=== PATIENT | female | born 2000 | race African-American/Black ===

== ENCOUNTER 2024-06-12 16:56 | Emergency (ER) | payer MEDICAID ==
[~2024-06-12] VITALS: Ht 160 cm; Wt 54.4 kg
[2024-06-12] MEDS ORDERED: KETOROLAC TROMETHAMINE 30 MG/ML SDV IV ONE (17:00)
[2024-06-12] MEDS ORDERED: SODIUM CHLORIDE 0.9% 1,000 ML IV ONE (17:00)
[2024-06-12 17:11] VITALS: BP 115/70
[2024-06-12 17:15] VITALS: BP 107/66
[2024-06-12 17:15] LABS: URINE BILIRUBIN - DIPSTICK Negative (NEGATIVE); URINE BLOOD DIPSTICK Large (NEGATIVE); URINE GLUCOSE - DIPSTICK Negative (NEGATIVE); URINE KETONE Negative (NEGATIVE); URINE LEUK ESTERASE Negative (NEGATIVE); URINE NITRITE - DIPSTICK Negative (Negative); URINE PH 5.5 (4.5-8.0); URINE PROTEIN - DIPSTICK 30 mg/dL (NEG-TRACE); URINE SPECIFIC GRAVITY 1.025; URINE UROBILINOGEN - DIPSTICK 0.2 E.U./dL (0.2)
[2024-06-12 17:16] LABS: BASO% 0.4 % (0-3); EOS% 0.4 % (0-8); HEMATOCRIT 30.2 % (37.0-47.0); HEMOGLOBIN 9.8 g/dl (12.0-16.0); IMMATURE GRANULOCYTES 0.1 % (0.0-5.0); LYMPH% 22.8 % (15-41); MEAN CELL VOLUME 84.1 fL CALC (80.0-100.0); MEAN CORPUSCULAR HGB 27.3 pG CALC (26.0-32.0); MEAN CORPUSCULAR HGB CONC 32.5 g/dL CAL (32.0-36.0); MONO% 12.4 % (2-13); NEUT# 4.69 thou/uL (2.00-7.15); NEUT% 63.9 % (42-76); RED BLOOD COUNT 3.59 mill/uL (4.20-5.60); RED CELL DISTRI WIDTH 14.5 % (11.5-15.5); URINE COLOR Yellow
[2024-06-12 17:22] LABS: URINE MUCUS FEW hpf (NONE-FEW); URINE RBC >100 RBC/hpf (0-5); URINE SQUAMOUS EPITHELIAL CELL MANY EPI/hpf (0-FEW); URINE WBC 0-2 WBC/hpf (0-5)
[2024-06-12 17:30] VITALS: BP 101/65
[2024-06-12 17:30] LABS: BILIRUBIN, TOTAL 0.3 mg/dL (0.02-1.3); CREATININE 0.7 mg/dL (0.5-1.0); POTASSIUM 3.6 mmol/l (3.5-5.1)
[2024-06-12 17:45] VITALS: BP 98/60
[2024-06-12 18:00] VITALS: BP 105/60
[2024-06-12 18:15] VITALS: BP 97/54
== END 2024-06-12 18:03 | disposition home or self-care (01) ==
LOC: ED 16:56
PROVIDERS: Family Medicine
DX: N94.6 Dysmenorrhea, unspecified (principal)